=== PATIENT | female | born 1995 | race African-American/Black ===

== ENCOUNTER 2019-06-11 10:05 | Emergency (ER) | payer OTHER ==
[2019-06-11] MEDS ORDERED: ONDANSETRON 4 MG TAB.RAPDIS PO ONE (11:44)
[2019-06-11] MEDS ORDERED: ACETAMINOPHEN 325 MG TABLET PO ONE (11:45)
--- NOTE | 2019-06-11 11:53 | ER Document Report ---
HPI - HPI Time Seen by Provider: 06/11/19 11:43 Pain Level: 3 Context: 23-year-old G1, P0 5-week female presents to the emergency department for nausea and vomiting for the past 24 hours. Patient states that she cannot eat or drink anything and vomits when she makes any attempts to include saltine crackers. Patient states she has an associated headache and a sore throat. Patient has not established OB care yet because she was found out she was . LMP 05/04/2019. - REPRODUCTIVE LMP: 05/04/19 Reproductive: REPORTS: : Past Medical History - Social History Smoking Status: Unknown if Ever Smoked Family History: None Patient has suicidal ideation: No Patient has homicidal ideation: No Vertical Provider Document - CONSTITUTIONAL Notes: PHYSICAL EXAMINATION: Reviewed vital signs and charting by RN GENERAL: Alert, interacts well. No acute distress. HEAD: Normocephalic, atraumatic. EYES: Pupils equal and round. Extraocular movements intact. ENT: Oral mucosa moist, tongue midline. NECK: Full range of motion. Trachea midline. LUNGS: Clear to auscultation bilaterally, no wheezes, rales, or rhonchi. No respiratory distress. HEART: Regular rate and rhythm. No murmur ABDOMEN: soft, non-tender. No distention. Bowel sounds present EXTREMITIES: Moves all 4 extremities spontaneously. No edema, No cyanosis. PSYCH: Normal affect, normal mood. SKIN: Warm, dry, normal turgor. No rashes or lesions noted. - INFECTION CONTROL TRAVEL OUTSIDE OF THE [place] IN LAST 30 DAYS: Yes Course - Re-evaluation Re-evalutation: 06/11/19 11:54 Well-appearing in no acute distress. Patient has only had symptoms for the past 24 hours and appears well-hydrated. I am going to give her some ODT Zofran and fluid challenge her. Also, I have ordered her Tylenol and we will get a rapid strep. If patient responds well to the Zofran I will send her home with a dose pack and have her follow-up with her primary. 06/11/19 13:01 Rapid strep is negative. Patient responded well to the Zofran is able to tolerate p.o. fluids. I explained to her at length that she may have morning sickness I am going to send her home with a Zofran dose pack. Also, I have given her instructions on using vitamin B6 and Unisom in lieu of Diclegis. Patient understands everything, agrees with the plan, stable for discharge. - Vital Signs Vital signs: Temp Pulse Resp BP Pulse Ox 97.5 F 96 18 139/76 H 100 06/11/19 10:58 06/11/19 10:58 06/11/19 10:58 06/11/19 10:58 06/11/19 10:58 Discharge - Discharge Clinical Impression: Nausea and vomiting during , Sore throat Headache Qualifiers: Headache type: unspecified Headache chronicity pattern: acute headache Intra ctability: not intractable Qualified Code(s): R51 - Headache Condition: Good Disposition: HOME, SELF-CARE Additional Instructions: You have been seen for vomiting during . You should continue to drink plenty of water and consider taking a solution such as Pedialyte if your having difficulty eating food. Please return if you become unable to drink any fluids for more than 12 hours, urinate less than twice a day, pass out, or have any other symptoms that are concerning to you. For nausea and vomiting during I recommend: Start with 10-12.5 mg of pyridoxine (vitamin B6) three times a day for 2 days. If not fully effective, Increase to 12.5 mg of pyridoxine four times a day for 2 days. If not fully effective, Increase to 25 mg of pyridoxine three times a day for 2 days. If not fully effective, Continue 25 mg pyridoxine 3 times a day, and add 12.5 mg of doxylamine before bedtime each day for 2 days. If not fully effective, Continue 25 mg pyridoxine 3 times a day, and take 12.5 mg of doxylamine twice a day. If not fully effective, Continue 25 mg pyridoxine 3 times a day, and take 12.5 mg of doxylamine three times a day. If not fully effective, Continue 25 mg pyridoxine 3 times a day, and 12.5 mg of doxylamine 3 times a day, while adding Emetrol, one to two tablespoons (15-30 cc) taken once or twice a day as needed. (Emetrol is an [id number] mixture of sugar syrups and phosphoric acid [phosphorylated carbohydrate solution]) that acts by soothing the actual wall of the gastrointestinal tract). If not fully effective, Consult with your doctor.
[2019-06-11] MEDS ORDERED: ONDANSETRON ODT 4 MG TAB (6 TAB/ER DISP) PO PRN (13:05)
[2019-06-11 13:17] VITALS: BP 125/62
== END 2019-06-11 13:17 | disposition home or self-care (01) ==
LOC: ER 10:05
DX: O21.9 Vomiting of pregnancy, unspecified (principal); O26.891 Other specified pregnancy related conditions, first trimester; R51 Headache; O99.511 Diseases of the respiratory system complicating pregnancy, first trimester; J02.9 Acute pharyngitis, unspecified; Z3A.01 Less than 8 weeks gestation of pregnancy
CPT/HCPCS: 87070; 87880; S0119; 99284

== ENCOUNTER 2019-07-04 16:36 | Emergency (ER) | payer OTHER ==
[2019-07-04 18:01] LABS: ABSOLUTE BASOPHILS # (AUTO) 0.1 10^3/uL (0.0-0.2); ABSOLUTE EOSINOPHILS # (AUTO) 0.2 10^3/uL (0.0-0.6); ABSOLUTE LYMPHOCYTES (AUTO) 2.9 10^3/uL (0.5-4.7); ABSOLUTE MONOCYTES (AUTO) 0.7 10^3/uL (0.1-1.4); ABSOLUTE NEUT (AUTO) 10.6 10^3/uL (1.7-8.2); BASOPHILS % (AUTO) 0.5 % (0-2); EOSINOPHILS % (AUTO) 1.2 % (0-6); HEMATOCRIT 40.4 % (36.0-47.0); HEMOGLOBIN 13.9 g/dL (12.0-15.5); LYMPHOCYTES % (AUTO) 19.9 % (13-45); MEAN CORPUSCULAR HEMOGLOBIN 30.9 pg (27.0-33.4); MEAN CORPUSCULAR HGB CONC 34.4 g/dL (32.0-36.0); MEAN CORPUSCULAR VOLUME 90 fl (80-97); PLATELET COUNT 289 10^3/uL (150-450); RED CELL DISTRIBUTION WIDTH 12.8 % (11.5-14.0); SEGMENTED NEUTROPHILS % (AUTO) 73.4 % (42-78); TOTAL CELLS COUNTED % (AUTO) 100 %; WHITE BLOOD COUNT 14.4 10^3/uL (4.0-10.5)
[2019-07-04 18:09] LABS: APPEARANCE,URINE CLEAR; BILIRUBIN,URINE NEGATIVE (NEGATIVE); COLOR,URINE STRAW; GLUCOSE, URINE NEGATIVE (NEGATIVE); KETONES,URINE 20 mg/dL (NEGATIVE); LEUKOCYTE ESTERASE,URINE TRACE (NEGATIVE); NITRITE,URINE NEGATIVE (NEGATIVE); PROTEIN,URINE NEGATIVE (NEGATIVE); URINE SPECIFIC GRAVITY 1.005; UROBILINOGEN,URINE NEGATIVE mg/dL (<2.0)
[2019-07-04 18:16] LABS: ALBUMIN 4.8 g/dL (3.5-5.0); ALKALINE PHOSPHATASE 64 U/L (38-126); ANION GAP 13 (5-19); ASPARTATE AMINO TRANSFERASE 27 U/L (14-36); BILIRUBIN,DIRECT 0.1 mg/dL (0.0-0.4); BILIRUBIN,TOTAL 0.6 mg/dL (0.2-1.3); BLOOD UREA NITROGEN 8 mg/dL (7-20); CALCIUM 10.5 mg/dL (8.4-10.2); CARBON DIOXIDE 21 mmol/L (22-30); CHLORIDE 104 mmol/L (98-107); GLUCOSE 76 mg/dL (75-110); POTASSIUM 4.1 mmol/L (3.6-5.0); TOTAL PROTEIN 7.9 g/dL (6.3-8.2)
--- NOTE | 2019-07-04 18:29 | RADIOLOGY REPORT (SQ) ---
EXAM DESCRIPTION: U/S OB TRANSVAG W/DOPPLER COMPLETED DATE/TIME: 07/04/2019 6:12 pm REASON FOR STUDY: lower abdominal pain COMPARISON: None. TECHNIQUE: Transvaginal grayscale images acquired of the pelvis. Additional selected spectral and co pasha Doppler images recorded. All images stored on PACs. bHCG: Pending. CLINICAL DATES: EGA 8 weeks 5 days LIMITATIONS: None. FINDINGS: FETUS: Single Living intrauterine . ULTRASOUND EGA: 8 weeks 6 days ULTRASOUND DAISY: 02/07/2020 EFW: Not applicable less than 20 weeks. CRL: 2.24 cm FHR: 171 beats per minute. SUBCHORIONIC BLEED: No. SIZE OF BLEED: Not applicable. UTERUS: The uterus measures 9.2 x 4.7 x 6.1 cm. CERVICAL LENGTH: 3.1 cm. Closed. RIGHT ADNEXA: The right ovary measures 3.5 x 3.1 x 2.2 cm. Flow by Doppler was shown at the right ov charles. LEFT ADNEXA: The left ovary measures 1.6 x 2.6 x 1.3 cm. Flow by Doppler was shown at the left ovary . FREE FLUID: None. IMPRESSION: LIVING INTRAUTERINE . EGA 8 WEEKS 6 DAYS. Trimester of : First trimester - 0 to 13 weeks. TECHNICAL DOCUMENTATION: JOB ID: [id number] [employer]- All Rights Reserved rev-12/12 Reading location - IP/workstation name: [email or web address]
[2019-07-04] MEDS ORDERED: LIDOCAINE 2% VISCOUS SOLN 20 ML UDCUP PO ONE (18:45)
[2019-07-04] MEDS ORDERED: MAG HYDROX/AL HYDROX/SIMETH SUSP 30 ML UDCUP PO ONE (18:45)
--- NOTE | 2019-07-04 18:51 | ER Document Report ---
ED General - General Chief Complaint: Abdominal Cramping Stated Complaint: ABDOMINAL CRAMPING Time Seen by Provider: 07/04/19 17:25 Primary Care Provider: ARMANDO ZURITA PA-C [Primary Care Provider] - Follow up as needed TRAVEL OUTSIDE OF THE [place] IN LAST 30 DAYS: No - HPI Notes: Patient is a G1, P0 approximately 8-week female who presents complaining of epigastric abdominal pain with mid lower bilateral pelvic pain over the past couple days. She does describe the pain as cramping. The pain does not radiate. She has had decreased overall p.o. intake due to nausea. She is urinating normally and having normal bowel movements. No vaginal discharge, odor, or bleeding. No surgical history to her abdomen. Denies any headache, fever, head injury, neck pain, URI, sore throat, chest pain, palpitations, syncope, cough, shortness of breath, wheeze, dyspnea, vomiting/diarrhea, urinary retention, dysuria, hematuria, back pain, or rash. - Related Data Allergies/Adverse Reactions: corn Allergy (Verified 07/04/19 17:25) lettuce Allergy (Verified 07/04/19 17:25) chocolate flavor Adverse Reaction (Verified 07/04/19 17:25) pineapple Allergy (Uncoded 07/04/19 17:25) vanilla Allergy (Uncoded 07/04/19 17:25) catfish Adverse Reaction (Uncoded 07/04/19 17:25) Past Medical History - Social History Smoking Status: Never Smoker Chew tobacco use (# tins/day): No Frequency of alcohol use: None Drug Abuse: None Family History: None Patient has suicidal ideation: No Patient has homicidal ideation: No Review of Systems - Review of Systems -: Yes All other systems reviewed and negative Physical Exam - Vital signs Vitals: Temp Pulse Resp BP Pulse Ox 97.7 F 84 18 133/76 H 100 07/04/19 16:43 07/04/19 16:43 07/04/19 16:43 07/04/19 16:43 07/04/19 16:43 - Notes Notes: PHYSICAL EXAMINATION: GENERAL: Well-appearing, well-nourished and in no acute distress. HEAD: Atraumatic, normocephalic. EYES: Pupils equal round and reactive to light, extraocular movements intact, sclera anicteric, conjunctiva are normal. ENT: Nares patent and without discharge. oropharynx clear without exudates. No tonsilar hypertrophy or erythema. Moist mucous membranes. NECK: Normal range of motion, supple without lymphadenopathy LUNGS: Breath sounds clear to auscultation bilaterally and equal. No wheezes rales or rhonchi. HEART: Regular rate and rhythm without murmurs, rubs, gallops. ABDOMEN: Soft, nondistended abdomen. No guarding, no rebound. Normal bowel sounds present. No CVA tenderness bilaterally. + mild epigastric tenderness. + mild lower mid abd tenderness. Leach neg. No tenderness at [place]. Musculoskeletal: FROM to passive/active. Strength 5+/5. Extremities: No cyanosis, clubbing, or edema b/l. Peripheral pulses 2+. Capillary refill less than 3 seconds. NEUROLOGICAL: Normal speech, normal gait. PSYCH: Normal mood, normal affect. SKIN: Warm, Dry, normal turgor, no rashes or lesions noted. Course - Re-evaluation Re-evalutation: 07/04/19 20:32 Patient is an afebrile, well-hydrated, 23-year-old female who presents with epigastric abdominal pain and mild lower pelvic pain in the setting of early . I do suspect epigastric pain to be benign at this time. Vitals are acceptable without significant tachycardia, tachypnea, or hypoxia. PE is otherwise unremarkable. Leach was negative and there is no tenderness at [place] point. GI cocktail did somewhat improve symptoms. Patient is nontoxic- appearing and is able to tolerate p.o. without difficulty. Labs are acceptable at this time. Imaging unremarkable. No further work-up warranted. I did review with patient that she will need to monitor for any localization of pain to the right upper quadrant or right lower quadrant. Low suspicion/risk for acute appendicitis, bowel obstruction, acute cholecystitis, acute cholangitis, perforated diverticulitis, incarcerated hernia, pancreatitis, perforated ulcer, peritonitis, sepsis, pelvic inflammatory disease, ectopic , tubo- ovarian abscess, ovarian torsion, or other systemic emergent condition at this time. Patient is aware that her condition can change from initial presentation and she needs to monitor symptoms closely and seek medical attention if any ac [place] changes. Conservative measures otherwise for symptoms. Recheck with OBGYN this week as scheduled. Recheck with your PCM in 2-3 days. Consider consult with a adult education professional. Return to the ED with any worsening/concerning symptoms otherwise as reviewed in discharge. Patient is in agreement. - Vital Signs Vital signs: Temp Pulse Resp BP Pulse Ox 97.7 F 84 18 133/76 H 100 07/04/19 17:25 07/04/19 16:43 07/04/19 17:25 07/04/19 16:43 07/04/19 17:25 - Laboratory Result Diagrams: 07/04/19 17:41 07/04/19 17:41 Laboratory results interpreted by me: 07/04/19 07/04/19 07/04/19 17:41 17:41 17:41 WBC 14.4 H Absolute Neuts (auto) 10.6 H Carbon Dioxide 21 L Creatinine 0.50 L Calcium 10.5 H Beta HCG, Quant 376517.00 H Urine Ketones 20 H Ur Leukocyte Esterase TRACE H Discharge - Discharge Clinical Impression: Epigastric pain, Pelvic pain during Condition: Stable Disposition: HOME, SELF-CARE Instructions: Abdominal Pain ([facility]) Additional Instructions: Maintain adequate fluid and food intake [place] diet ([employer] Bananas, rice, apples, toast, etc Reglan as needed tylenol if needed Monitor for any worsening symptoms Make sure you are staying hydrated enough to urinate and have normal BM's Recheck with your PCM in 2-3 days Keep appointment with [facility] this week Consider consult with Gastroenterology for ongoing/worsening symptoms Return to the ED with any worsening symptoms and/or development of fever, headache, chest pain, palpitations, syncope, shortness of breath, trouble breathing, abdominal pain, n/v/d, blood in stool/urine, weakness, or other worsening symptoms that are concerning to you. Prescriptions: Famotidine [Pepcid] 20 mg PO DAILY #15 tablet Metoclopramide HCl [Reglan] 10 mg PO BID PRN #10 tablet PRN Reason: Forms: Elevated Blood Pressure Referrals: ARMANDO ZURITA PA-C [Primary Care Provider] - Follow up as needed
[2019-07-04] MEDS ORDERED: METOCLOPRAMIDE HCL 10 MG TABLET PO ONE (19:09)
[2019-07-04 20:49] VITALS: BP 137/69
== END 2019-07-04 20:49 | disposition home or self-care (01) ==
LOC: ER 16:36
DX: O26.91 Pregnancy related conditions, unspecified, first trimester (principal); R10.13 Epigastric pain; R10.2 Pelvic and perineal pain; Z3A.08 8 weeks gestation of pregnancy
CPT/HCPCS: 99284; 36415; 84702; 83690; 85025; 80053; 81001; 76817; 93976; J3490